=== PATIENT | male | born 1945 | race Native Hawaiian/Other Pacific Islander ===

== ENCOUNTER 2019-04-13 11:20 | Emergency (ER) | payer OTHER ==
[~2019-04-13] VITALS: Ht 175.3 cm; Wt 93.4 kg
[2019-04-13 12:27] LABS: PLATELET COUNT 375 K/uL (142-355)
[2019-04-13 12:33] LABS: POTASSIUM 3.7 mmol/L (3.6-5.2)
[2019-04-13 14:05] VITALS: BP 144/71; TEMP 97.7
== END 2019-04-13 14:05 | disposition home or self-care (01) ==
LOC: ED 11:20
PROVIDERS: Family Medicine
DX: M51.36 Other intervertebral disc degeneration, lumbar region (principal); M62.830 Muscle spasm of back; X50.0XXA Overexertion from strenuous movement or load, initial encounter
CPT/HCPCS: 80053; 85027; 96372; 99284; J1885